=== PATIENT | female | born 1980 | race Asian ===

== ENCOUNTER 2020-02-08 22:32 | Emergency (ER) | payer OTHER ==
[~2020-02-08] VITALS: Ht 162.6 cm; Wt 59.1 kg
[2020-02-08] MEDS ORDERED: LEVO75 PO (22:34)
[2020-02-08 22:45] VITALS: BP 119/83
[2020-02-08] MEDS ORDERED: PERTUSS(ACELL),DIPH,TET VAC/PF 0.5 ML VIAL IM ONE (23:15)
[2020-02-08] MEDS ORDERED: LIDOCAINE 1%/EPI 1:200,000/PF 10 ML VIAL INJ ONE (23:15)
[2020-02-09] MEDS ORDERED: BACITRACIN 0.9 GM PACKET OINTMENT TP ONE (00:30)
== END 2020-02-09 01:21 | disposition home or self-care (01) ==
LOC: EMS 22:32
DX: S01.111A Laceration without foreign body of right eyelid and periocular area, initial encounter (principal); F17.210 Nicotine dependence, cigarettes, uncomplicated; W19.XXXA Unspecified fall, initial encounter; Y93.89 Activity, other specified; Y92.89 Other specified places as the place of occurrence of the external cause; Y99.8 Other external cause status
CPT/HCPCS: 12013; 90471; 90715; 99283; J3490; 12002

== ENCOUNTER 2020-02-25 22:18 | Emergency (ER) | payer OTHER ==
[~2020-02-25] VITALS: Ht 162.6 cm; Wt 59.1 kg
[~2020-02-25 22:18] MED LIST: LEVO75 PO
[2020-02-25 22:25] VITALS: BP 128/78
== END 2020-02-25 22:25 | disposition home or self-care (01) ==
LOC: EMS 22:21
DX: S51.011D Laceration without foreign body of right elbow, subsequent encounter (principal); F17.210 Nicotine dependence, cigarettes, uncomplicated; X58.XXXD Exposure to other specified factors, subsequent encounter
CPT/HCPCS: 99406; Z7502